=== PATIENT | male | born 1955 | race Hispanic/Latino ===

== ENCOUNTER 2017-08-06 14:50 | Outpatient (CLI) | payer BC | END 2017-08-06 14:51 | disposition home or self-care (01) | LOC: BICRAD 14:50 | PROVIDERS: ATTEND Podiatrist | DX: M25.572 Pain in left ankle and joints of left foot (principal); M79.672 Pain in left foot; M19.072 Primary osteoarthritis, left ankle and foot ==

== ENCOUNTER 2020-10-24 09:33 | Outpatient (CLI) | payer BC ==
[2020-10-24] MEDS ORDERED: Magnevist 469MG/ML 20 ML VIAL ONE (09:50)
== END 2020-10-24 09:34 | disposition home or self-care (01) ==
LOC: TBSIIMAG 09:33
PROVIDERS: ATTEND Urology
DX: C61 Malignant neoplasm of prostate (principal)
CPT/HCPCS: 72197; 82565

== ENCOUNTER 2022-04-24 19:00 | Outpatient (CLI) | payer MEDICARE, BC | END 2022-04-24 19:01 | disposition home or self-care (01) | LOC: SLEEPLAB 19:00 | PROVIDERS: ATTEND Internal Medicine Critical Care Medicine | DX: G47.33 Obstructive sleep apnea (adult) (pediatric) (principal); R06.83 Snoring | CPT/HCPCS: 95811 ==

== ENCOUNTER 2022-12-13 13:12 | Outpatient (CLI) | payer MEDICARE, BC ==
[2022-12-13 14:32] LABS: Hematocrit 40.5 % (38.8-50.0); Hemoglobin 12.6 g/dL (13.5-17.5); Mean Corpuscular HGB CONC 31.1 g/dL (32.0-36.0); Mean Corpuscular Hemoglobin 20.1 pg (27.0-33.0); Mean Corpuscular Volume 64.5 fl (81.2-95.1); Mean Platelet Volume 10.1 fl (7.4-10.4); Platelet Count 213 10x3/uL (150-450); RBC Distribution Width 18.4 % (11.5-14.5); Red Blood Cell (RBC) Count 6.28 10x6/uL (4.32-5.72); White Blood Cell (WBC) Count 4.6 10x3/uL (3.5-10.5)
[2022-12-13 14:49] LABS: INR-International Normal Ratio 1.1; PTT 31.3 sec (22.0-33.0); Prothrombin Time 11.4 sec (9.5-12.1)
== END 2022-12-13 13:13 | disposition home or self-care (01) ==
LOC: LABBT 13:12
PROVIDERS: ATTEND Neurological Surgery
DX: Z01.818 Encounter for other preprocedural examination (principal); M50.021 Cervical disc disorder at C4-C5 level with myelopathy
CPT/HCPCS: 85027; 85610; 85730; 93005; 93010

== ENCOUNTER 2022-12-17 05:40 | Day surgery (SDC) | payer MEDICARE, BC ==
[2022-12-13 14:08] VITALS: BMI 29.8
[2022-12-17] MEDS ORDERED: Thrombin 5000 UNITS/5 ML VIAL ONE (06:12)
[2022-12-17] MEDS ORDERED: Vancomycin 1 GM VIAL ONE (06:12)
[2022-12-17] MEDS ORDERED: CEFAZOLIN 2 GM VIAL ONE (06:46)
[2022-12-17] MEDS ORDERED: Sodium Chloride 0.9% 100 ML ONE (06:46)
[2022-12-17] MEDS ORDERED: Dexmedetomidine 200 MCG/2 ML VIAL ONE (06:56)
[2022-12-17] MEDS ORDERED: fentaNYL PF 100 MCG/2 ML SYRINGE ONE (06:56)
[2022-12-17] MEDS ORDERED: Magnesium 5 GM/10 ML VIAL ONE (06:56)
[2022-12-17] MEDS ORDERED: Rocuronium Bromide 10 MG/ML (10ML VIAL) ONE (07:09)
[2022-12-17] MEDS ORDERED: Dexamethasone 20 MG/5 ML VIAL ONE (07:09)
[2022-12-17] MEDS ORDERED: ePHEDrine Sulfate 50 MG/10 ML VIAL ONE (07:09)
[2022-12-17] MEDS ORDERED: Ondansetron PF 4 MG/2 ML Vial ONE (07:09)
[2022-12-17] MEDS ORDERED: PROPOFOL 200 MG/20 ML VIAL ONE (07:09)
[2022-12-17] MEDS ORDERED: SUGAMMADEX SODIUM 200 MG/2 ML VIAL ONE (08:46)
== END 2022-12-17 12:28 | disposition home or self-care (01) ==
LOC: SDC 05:40
PROVIDERS: ATTEND Neurological Surgery
PROC: 0RG10A0 Fusion of Cervical Vertebral Joint with Interbody Fusion Device, Anterior Approach, Anterior Column, Open Approach (ICD-10-PCS; principal; 2022-12-17)
DX: M50.021 Cervical disc disorder at C4-C5 level with myelopathy (principal); G95.20 Unspecified cord compression; Z87.891 Personal history of nicotine dependence; Z79.899 Other long term (current) drug therapy
CPT/HCPCS: C1713; J1100; J2405; J2704; J3370; J3475; J3490

== ENCOUNTER 2023-01-21 13:10 | Outpatient (CLI) | payer MEDICARE, BC | END 2023-01-21 13:11 | disposition home or self-care (01) | LOC: BICRAD 13:10 | PROVIDERS: ATTEND Neurological Surgery | DX: M47.12 Other spondylosis with myelopathy, cervical region (principal); Z98.890 Other specified postprocedural states | CPT/HCPCS: 72040 ==

== ENCOUNTER 2023-08-28 10:46 | Emergency (ER) | payer BC, MEDICARE ==
[2023-08-28 11:21] LABS: #Basophils Less than 0.03 10x3/uL (0.0-0.2); %Basophils 0.4 % (0.0-1.0); %Eosinophils 1.5 % (0.0-10.0); %Monocytes 13.4 % (0.0-10.0); %Neutrophils 64.3 % (42.0-75.0); Hematocrit 41.4 % (42.0-52.0); Hemoglobin 13.1 g/dL (14.0-18.0); Mean Corpuscular HGB CONC 31.6 g/dL (32.0-36.0); Mean Corpuscular Hemoglobin 20.1 pg (27.0-31.0); Mean Corpuscular Volume 63.5 fL (78.0-98.0); Mean Platelet Volume 10.2 fL (7.4-10.4); Platelet Count 213 10x3/uL (130-400); Red Blood Cell (RBC) Count 6.52 mill/uL (4.70-6.10)
[2023-08-28] MEDS ORDERED: Aspirin Chewable 81 MG TAB ONE (11:34)
[2023-08-28] MEDS ORDERED: Nitroglycerin 2% Ointment 1 INCH/1 GM Packet ONE (11:34)
[2023-08-28 11:46] LABS: Anion Gap 16 mmol/L (10-20); BUN (Urea Nitrogen) 21 mg/dL (8.4-25.7); Calc. Creatinine Clearance 0 mL/min (70-130); Carbon Dioxide 19 mmol/L (23-31); Chloride 109 mmol/L (98-107); Potassium 4.2 mmol/L (3.5-5.1); Sodium 140 mmol/L (136-145)
[2023-08-28 11:47] LABS: ALT (SGPT) 20 U/L (8-55); AST (SGOT) 20 U/L (5-34); Albumin 4.1 g/dL (3.4-4.8); Alkaline Phosphatase 64 U/L (40-110); Bilirubin, Total 0.9 mg/dL (0.2-1.2); Calcium 9.4 mg/dL (7.8-10.44); Estimated GFR 94; Globulin 3.1 g/dL (2.4-3.5); Glucose 96 mg/dL (80-115); Lipase 40 U/L (8-78); Magnesium 1.8 mg/dL (1.6-2.6); Protein, Total 7.2 g/dL (5.8-8.1)
[2023-08-28 12:01] LABS: Troponin I Less than 0.010 ng/mL (< 0.028)
[2023-08-28 14:50] LABS: Bilirubin Negative (Negative); Blood, Urine Small (Negative); Glucose, Urine (Dipstick) Negative (Negative); Ketone, Urine Negative (Negative); Leukocyte Negative (Negative); Nitrite Negative (Negative); Protein, Urine (Dipstick) Negative (Neg-Trace); Specific Gravity, Urine 1.025 (1.005-1.030); Urobilinogen 0.2 mg/dL (Less than 2)
[2023-08-28 14:51] LABS: Clarity Hazy (Clear)
[2023-08-28 14:56] LABS: Bacteria/HPF None Seen HPF (None Seen); CAUTI Indications for Culture Pelvic or flank pain; RBC/HPF 0-3 HPF (0-3); Squamous Epithelial None Seen HPF (0-3); WBC/HPF 0-3 HPF (0-3)
[2023-08-28 14:58] LABS: Urine Culture Reflex No No
[2023-08-28] MEDS ORDERED: Acetaminophen 500 MG TAB ONE (15:57)
== END 2023-08-28 17:57 | disposition short-term general hospital (02) ==
LOC: ERS 10:46
DX: R07.9 Chest pain, unspecified (principal); I10 Essential (primary) hypertension; I25.2 Old myocardial infarction; Z79.899 Other long term (current) drug therapy
CPT/HCPCS: 36415; 71045; 80053; 81001; 83690; 83735; 84484; 85025; 93005

== ENCOUNTER 2024-04-09 11:45 | Outpatient (CLI) | payer MEDICARE | END 2024-04-09 11:46 | disposition home or self-care (01) | LOC: PET 11:45 | PROVIDERS: ATTEND Radiology Radiation Oncology | DX: C61 Malignant neoplasm of prostate (principal); C79.51 Secondary malignant neoplasm of bone | CPT/HCPCS: 78815; A9552; A9595 ==

== ENCOUNTER 2025-04-20 12:30 | Outpatient (CLI) | payer MEDICARE | END 2025-04-20 12:31 | disposition home or self-care (01) | LOC: PET 12:30 | PROVIDERS: ATTEND Internal Medicine Hematology & Oncology | DX: C61 Malignant neoplasm of prostate (principal); E66.9 Obesity, unspecified; G95.89 Other specified diseases of spinal cord | CPT/HCPCS: 78815; A9595 ==